=== PATIENT | female | born 1990 | race Caucasian/White ===

== ENCOUNTER 2017-04-11 20:28 | Emergency (ER) | payer MEDICAID ==
--- NOTE | 2017-04-11 21:06 | EDPHY ---
H & P Stated Complaint: DAWKINS, lightheaded x3 days HPI/ROS: Chief complaint: Lightheaded, headache History of present illness: This is a 27-year-old female who presents to the emergency department with her boyfriend for evaluation of lightheadedness and a headache. Patient reports the onset of lightheadedness over the last 3 days. It has been persistent. Today the headache began. She describes pain across her whole head most pronounced behind the eyes. She reports associated visual disturbances with the headache including seeing black lines and dots. She also notes occasional numbness and tingling to the arms and legs bilaterally. She reports she has had similar problems on and off for the last year. She has seen a primary care doctor about this who feels this is secondary to depression and has treated her with antidepressants although this has not resolved the problem. She denies other associated signs or symptoms including no history of trauma, no fevers or cold-like symptoms, no reported vertigo like symptoms. No bowel or bladder dysfunction. No seizure activity. Review of systems: A 10 point review of systems was obtained and other than described above was negative - Personal History LMP (Females 10-55): 8-14 Days Ago Current Tetanus/Diphtheria Vaccine: Yes - Medical/Surgical History Hx Asthma: No Hx Chronic Respiratory Disease: No Hx Diabetes: No Hx Cardiac Disease: No Hx Renal Disease: No Hx Cirrhosis: No Hx Alcoholism: No Hx HIV/AIDS: No Hx Splenectomy or Spleen Trauma: No Other PMH: denies - Social History Smoking Status: Never smoked - Physical Exam Exam: General Appearance: Alert, nontoxic. Eyes: Pupils equal and round no pallor or injection. ENT, Mouth: Mucous membranes moist. Respiratory: There are no retractions, lungs are clear to auscultation. Cardiovascular: Regular rate and rhythm. Radial pulses 2+ bilaterally. No carotid bruits. Gastrointestinal: Abdomen is soft and non tender, no masses, bowel sounds normal. Neurological: Alert and oriented x4. Cranial nerves 2-12 grossly intact. Strength and sensation intact and symmetrical. No pronator drift. Cerebellar testing intact using finger to nose and heel to franklin. No meningismus. Ambulating without difficulty. Skin: Warm and dry, no rashes. Musculoskeletal: Neck is supple non tender. Extremities are symmetrical, full range of motion. Psychiatric: Patient is oriented X 3, there is no agitation. Constitutional: Initial Vital Signs Temperature (C) 36.9 C 04/11/17 20:30 Heart Rate 86 04/11/17 20:30 Respiratory Rate 18 04/11/17 20:30 Blood Pressure 160/96 H 04/11/17 20:30 O2 Sat (%) 99 04/11/17 20:30 O2 Delivery Mode Room Air Allergies/Adverse Reactions: Sulfa (Sulfonamide Antibiotics) Allergy (Verified 04/11/17 20:34) Home Medications: Medication Instructions Recorded NK [No Known Home Meds] 04/11/17 Medical Decision Making - Diagnostics Imaging Results: Imaging Impressions Head CT 04/11/17 21:53 Impression: Normal noncontrast CT of the brain. Results called to Chris Torres PA-C at the time of the interpretation. Imaging: Discussed imaging studies w/ yardage caller Radiologist ED Course/Re-evaluation: Patient is discussed with my secondary supervising physician Dr. Jay Miller. Patient presents to the emergency department for lightheadedness and subsequent headache. On presentation she is nontoxic. She is afebrile and vital signs are stable. Her physical exam is benign including a nonfocal neurologic exam. She undergoes evaluation with laboratory studies, EKG and CT scan of the head which are all unremarkable. She is treated with a headache cocktail of medications and reports improvement in symptoms. On re-evaluation she is sitting in the room talking easily with her boyfriend and using her phone. I believe she is appropriate for discharge home. Home care is discussed. She is referred to Neurology as well as a primary care doctor for continued evaluation and care. Return precautions are given. The patient voiced understanding and agreement with plan. Differential Diagnosis: Included but not limited to migraine headache, tension headache, cluster headache, chronic daily headache, electrolyte disturbances, and associated complications, anemia - Data Points Laboratory Results: Laboratory Results 04/11/17 21:18 04/11/17 21:18 04/11/17 04/11/17 04/11/17 21:18 21:18 21:18 WBC 8.13 10^3/uL 10^3/uL (3.80-9.50) RBC 4.73 10^6/uL 10^6/uL (4.18-5.33) Hgb 14.8 g/dL g/dL (12.6-16.3) Hct 42.2 % % (38.0-47.0) MCV 89.2 fL fL (81.5-99.8) MCH 31.3 pg pg (27.9-34.1) MCHC 35.1 g/dL g/dL (32.4-36.7) RDW 11.8 % % (11.5-15.2) Plt Count 218 10^3/uL 10^3/uL (150-400) MPV 9.9 fL fL (8.7-11.7) Neut % (Auto) 40.6 % % (39.3-74.2) Lymph % (Auto) 45.9 % H % (15.0-45.0) [place] % (Auto) 11.3 % % (4.5-13.0) Eos % (Auto) 1.4 % % (0.6-7.6) Baso % (Auto) 0.6 % % (0.3-1.7) Nucleat RBC Rel Count 0.0 % % (0.0-0.2) Absolute Neuts (auto) 3.30 10^3/uL 10^3/uL (1.70-6.50) Absolute Lymphs (auto) 3.73 10^3/uL H 10^3/uL (1.00-3.00) Absolute Monos (auto) 0.92 10^3/uL H 10^3/uL (0.30-0.80) Absolute Eos (auto) 0.11 10^3/uL 10^3/uL (0.03-0.40) Absolute Basos (auto) 0.05 10^3/uL 10^3/uL (0.02-0.10) Absolute Nucleated RBC 0.00 10^3/uL 10^3/uL (0-0.01) Immature Gran % 0.2 % % (0.0-1.1) Immature Gran # 0.02 10^3/uL 10^3/uL (0.00-0.10) Sodium 141 mEq/L mEq/L (134-144) Potassium 3.6 mEq/L mEq/L (3.5-5.2) Chloride 104 mEq/L mEq/L (97-110) Carbon Dioxide 24 mEq/l mEq/l (22-31) Anion Gap 13 mEq/L mEq/L (8-16) BUN 14 mg/dL mg/dL (7-23) Creatinine 0.8 mg/dL mg/dL (0.6-1.0) Estimated GFR > 60 Glucose 90 mg/dL mg/dL (70-100) Calcium 10.5 mg/dL H mg/dL (8.5-10.4) Beta HCG, Qual NEGATIVE Medications Given: Discontinued Medications Dexamethasone (Decadron Injection) 10 mg IVP EDNOW ONE Stop: 04/11/17 22:12 Last Admin: 04/11/17 22:28 Dose: 10 mg Diphenhydramine HCl (Benadryl Injection) 25 mg IVP EDNOW ONE Stop: 04/11/17 22:12 Last Admin: 04/11/17 22:27 Dose: 25 mg Ketorolac Tromethamine (Toradol) 15 mg IVP EDNOW ONE Stop: 04/11/17 22:12 Last Admin: 04/11/17 22:27 Dose: 15 mg Metoclopramide HCl (Reglan Injection) 10 mg IVP EDNOW ONE Stop: 04/11/17 22:12 Last Admin: 04/11/17 22:27 Dose: 10 mg Departure - Departure Disposition: Home, Routine, Self-Care Clinical Impression: Light headed, Headache Condition: Good Instructions: Acute Headache (ED), Lightheadedness (ED) Additional Instructions: Follow-up with a primary care doctor and a neurologist for continued evaluation and care If symptoms worsen or new symptoms develop return to the emergency room for recheck Referrals: ALEXIS FRANCISCO [Other] - As per Instructions Luisito Colon MD [Medical Doctor] - As per Instructions
[2017-04-11 21:27] LABS: % IMMATURE GRANULYOCYTES 0.2 % (0.0-1.1); ABSOLUTE IMMATURE GRANULOCYTES 0.02 10^3/uL (0.00-0.10); ADD DIFF? NO; ADD MORPH? NO; ADD SCAN? NO; ATYPICAL LYMPHOCYTE FLAG 10 (0-99); FRAGMENT RBC FLAG 0 (0-99); HEMATOCRIT 42.2 % (38.0-47.0); HEMOGLOBIN 14.8 g/dL (12.6-16.3); LEFT SHIFT FLG 0 (0-99); LIPEMIA HEMOLYSIS FLAG 90 (0-99); MEAN CELL HEMOGLOBIN 31.3 pg (27.9-34.1); MEAN CELL HEMOGLOBIN CONCENTR. 35.1 g/dL (32.4-36.7); MEAN CELL VOLUME 89.2 fL (81.5-99.8); MEAN PLATELET VOLUME 9.9 fL (8.7-11.7); PLATELET CLUMPS FLAG 0 (0-99); PLATELET COUNT 218 10^3/uL (150-400); RED BLOOD CELL COUNT 4.73 10^6/uL (4.18-5.33); RED CELL DISTRIBUTION WIDTH 11.8 % (11.5-15.2)
[2017-04-11 21:37] LABS: ANION GAP 13 mEq/L (8-16); CALCIUM 10.5 mg/dL (8.5-10.4); CARBON DIOXIDE 24 mEq/l (22-31); CHLORIDE 104 mEq/L (97-110); CREATININE 0.8 mg/dL (0.6-1.0); GLOMERULAR FILTRATION RATE > 60; GLUCOSE 90 mg/dL (70-100); POTASSIUM 3.6 mEq/L (3.5-5.2); SODIUM 141 mEq/L (134-144)
[2017-04-11] MEDS ORDERED: KETOROLAC 15 MG/1 ML SDV IVP ONE (22:11)
[2017-04-11] MEDS ORDERED: DEXAMETHASONE 10 MG/ML VIAL IVP ONE (22:11)
[2017-04-11] MEDS ORDERED: METOCLOPRAMIDE 10 MG/2 ML VIAL IVP ONE (22:11)
[2017-04-11 22:29] VITALS: RESP 16
[2017-04-11 23:36] VITALS: BP 134/72; PULSE 72; TEMP 98.1; O2SAT 98
--- NOTE | 2017-04-12 06:33 | CPEKG ---
Heart Rate: 74 RR Interval: 811 P-R Interval: 164 QRSD Interval: 80 QT Interval: 400 QTC Interval: 444 P [place]: 33 QRS [place]: 76 T Wave [place]: 24 EKG Severity - NORMAL ECG - EKG Impression: SINUS RHYTHM Electronically Signed By: Zeeshan Hyde 13-Apr-2017 21:53:54
== END 2017-04-11 23:15 | disposition home or self-care (01) ==
DX: R51 Headache (principal); R42 Dizziness and giddiness
CPT/HCPCS: 96374; J1100; J1200; J1885; J2765

== ENCOUNTER → 2018-03-08 | Outpatient (CLI) | payer OTHER | LOC: FLAB 13:28 → FIMAGING 13:28 → EDSTATUS 13:29 | PROVIDERS: ATTEND Internal Medicine | DX: R05 Cough (principal); R53.83 Other fatigue; R63.5 Abnormal weight gain ==

== ENCOUNTER 2018-03-22 21:22 | Emergency (ER) | payer OTHER ==
--- NOTE | 2018-03-22 21:43 | EDPHY ---
H & P Stated Complaint: SOB, swollen ankles, recent flight Time Seen by Provider: 03/22/18 21:39 HPI/ROS: HPI: This is a 28-year-old female who presents with Chief Complaint: SOB, swollen ankles, recent flight Location: Chest Quality: Dyspnea Duration: Starting Thursday Signs and Symptoms: no shortness of breath at rest, + shortness of breath on exertion, no cough, no chest pain, no palpitations, + bilateral ankle swelling, no wheezing, no orthopnea, no paroxysmal nocturnal dyspnea, no fever, no injury/ trauma, no hemoptysis, no carpal pedal spasms Timing: acute Severity: [id number] Context: Patient reports that on Thursday she woke up feeling short of breath or the inability to take a deep breath. She then flew to [place] and then returned on Thursday. She noted bilateral swollen ankles on Thursday. She denies fever, cough, nausea, vomiting, chest pain, upper respiratory symptoms. Patient is concerned that she may have a blood clot. No history of lung disease. No injury or trauma. No family history of clotting disorders. Nonsmoker. Does not take hormone replacement therapy. Modifying Factors: None Comment: ROS: A comprehensive 10 system review of systems is otherwise negative aside from elements mentioned in the history of present illness. MEDICAL/SURGICAL/SOCIAL HISTORY: Medical history: Generally healthy. Does not take any regular medications. Surgical history: Denies Social history: Employed, single, nonsmoker. Denies drug and alcohol use. CONSTITUTIONAL: Extremely well-appearing slightly anxious adult white female, awake and alert, no obvious distress HEENT: Atraumatic and normocephalic, PERRL, EOMI. Nares patent; no rhinorrhea; no nasal mucosal edema. Tympanic membranes clear. Oropharynx clear, no exudate and moist pink mucosa. Airway patent. No lymphadenopathy. No meningismus. Cardiovascular: Normal S1/S2, regular rate, regular rhythm, without murmur rub or gallop. PULMONARY/CHEST: Symmetrical and nontender. Clear to auscultation bilaterally. Good air movement. No accessory muscle usage. ABDOMEN: Soft, nondistended, nontender, no rebound, no guarding, no peritoneal signs, no masses or organomegaly. No CVAT. EXTREMITIES: 2/2 pulses, strength 5/5, no deformities, no clubbing, no cyanosis or edema. Negative Homans sign. No varicose veins. No palpable cords. NEUROLOGICAL: no focal neuro deficits. GCS 15. SKIN: Warm and dry, no erythema. no rash. Good capillary refill. Source: Patient Exam Limitations: No limitations - Personal History Current Tetanus/Diphtheria Vaccine: Yes Current Tetanus Diphtheria and Acellular Pertussis (TDAP): Yes - Medical/Surgical History Hx Asthma: No Hx Chronic Respiratory Disease: No Hx Diabetes: No Hx Cardiac Disease: No Hx Renal Disease: No Hx Cirrhosis: No Hx Alcoholism: No Hx HIV/AIDS: No Hx Splenectomy or Spleen Trauma: No Other PMH: denies - Social History Smoking Status: Never smoked Constitutional: Initial Vital Signs Temperature (C) 37.2 C 03/22/18 21:24 Heart Rate 93 03/22/18 21:24 Respiratory Rate 20 03/22/18 21:24 Blood Pressure 153/93 H 03/22/18 21:24 O2 Sat (%) 99 03/22/18 21:24 O2 Delivery Mode Room Air Allergies/Adverse Reactions: Sulfa (Sulfonamide Antibiotics) Allergy (Verified 03/22/18 21:23) Home Medications: Medication Instructions Recorded NK [No Known Home Meds] 04/11/17 Medical Decision Making - Diagnostics Imaging Results: Imaging Impressions Chest X-Ray 03/22/18 21:43 Impression: Normal. Clear lungs. ED Course/Re-evaluation: Vital signs reviewed and stable upon arrival. O2 sats 99% on room air and no tachycardia. Wells criteria is low for DVT/PE IV access and laboratory studies along with chest x-ray ordered 2207: Chest x-ray my read via PAC shows no opacity, no effusion, no pneumothorax , no widened mediastinum. 2217: Labs reviewed. Mild leukocytosis without left shift noted. No signs of anemia/platelet dysfunction/TRAV/electrolyte imbalance/VTE/. This patient was seen under the supervision of my secondary supervising physician. I evaluated care for this patient independently. Discussed this patient with Dr. Gandara. Differential Diagnosis: Shortness of breath including but not limited to pulmonary infectious process, COPD, asthma, pulmonary embolus and congestive heart failure. Leg swelling including but not limited to hypoalbuminemia, congestive heart failure, cor pulmonale, chronic venous stasis and DVT. - Data Points Laboratory Results: Laboratory Results 03/22/18 21:48 03/22/18 21:48 03/22/18 03/22/18 03/22/18 21:48 21:48 21:48 WBC RBC Hgb Hct MCV MCH MCHC RDW Plt Count MPV Neut % (Auto) Lymph % (Auto) [place] % (Auto) Eos % (Auto) Baso % (Auto) Nucleat RBC Rel Count Absolute Neuts (auto) Absolute Lymphs (auto) Absolute Monos (auto) Absolute Eos (auto) Absolute Basos (auto) Absolute Nucleated RBC Immature Gran % Immature Gran # D-Dimer 0.28 ug/mLFEU ug/mLFEU (0.00-0.50) Sodium 140 mEq/L mEq/L (135-145) Potassium 3.7 mEq/L mEq/L (3.3-5.0) Chloride 103 mEq/L mEq/L (97-110) Carbon Dioxide 26 mEq/l mEq/l (22-31) Anion Gap 11 mEq/L mEq/L (6-14) BUN 8 mg/dL mg/dL (7-23) Creatinine 0.9 mg/dL mg/dL (0.6-1.0) Estimated GFR > 60 Glucose 106 mg/dL H mg/dL (70-100) Calcium 10.1 mg/dL mg/dL (8.5-10.4) Beta HCG, Qual NEGATIVE 03/22/18 21:48 WBC 11.49 10^3/uL H 10^3/uL (3.80-9.50) RBC 4.79 10^6/uL 10^6/uL (4.18-5.33) Hgb 14.6 g/dL g/dL (12.6-16.3) Hct 42.6 % % (38.0-47.0) MCV 88.9 fL fL (81.5-99.8) MCH 30.5 pg pg (27.9-34.1) MCHC 34.3 g/dL g/dL (32.4-36.7) RDW 11.9 % % (11.5-15.2) Plt Count 257 10^3/uL 10^3/uL (150-400) MPV 10.0 fL fL (8.7-11.7) Neut % (Auto) 54.4 % % (39.3-74.2) Lymph % (Auto) 34.3 % % (15.0-45.0) [place] % (Auto) 8.9 % % (4.5-13.0) Eos % (Auto) 1.4 % % (0.6-7.6) Baso % (Auto) 0.7 % % (0.3-1.7) Nucleat RBC Rel Count 0.0 % % (0.0-0.2) Absolute Neuts (auto) 6.26 10^3/uL 10^3/uL (1.70-6.50) Absolute Lymphs (auto) 3.94 10^3/uL H 10^3/uL (1.00-3.00) Absolute Monos (auto) 1.02 10^3/uL H 10^3/uL (0.30-0.80) Absolute Eos (auto) 0.16 10^3/uL 10^3/uL (0.03-0.40) Absolute Basos (auto) 0.08 10^3/uL 10^3/uL (0.02-0.10) Absolute Nucleated RBC 0.00 10^3/uL 10^3/uL (0-0.01) Immature Gran % 0.3 % % (0.0-1.1) Immature Gran # 0.03 10^3/uL 10^3/uL (0.00-0.10) D-Dimer Sodium Potassium Chloride Carbon Dioxide Anion Gap BUN Creatinine Estimated GFR Glucose Calcium Beta HCG, Qual Departure - Departure Disposition: Home, Routine, Self-Care Clinical Impression: Ankle edema, bilateral Dyspnea Qualifiers: Dyspnea type: unspecified Qualified Code(s): R06.00 - Dyspnea, unspecified Condition: Good Instructions: Leg Edema (ED), Shortness of Breath (ED) Additional Instructions: Limit intake of salt as much as possible. Elevate bilateral lower extremities to decrease swelling. Wear compression stockings as needed for ankle swelling. Follow-up with primary care provider in 3-4 days if symptoms persist. You may benefit from a referral to pulmonology for pulmonary function test. Referrals: Adriana Harvey MD [Primary Care Provider] - 3-4 days, if not improved
[2018-03-22 22:09] LABS: PLATELET COUNT 257 10^3/uL (150-400)
[2018-03-22 22:39] VITALS: BP 129/66
== END 2018-03-22 22:51 | disposition home or self-care (01) ==
DX: R60.0 Localized edema (principal); R06.02 Shortness of breath